=== PATIENT | male | born 1975 | race Caucasian/White ===

== ENCOUNTER 2019-01-23 07:27 | Emergency (ER) | payer SELFPAY ==
[2019-01-23 07:28] VITALS: BP 110/67; PULSE 111; RESP 22; TEMP 36.6; O2SAT 96; BMI 28.0
--- NOTE | 2019-01-23 08:03 | ED.DCSUM_ITS ---
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 For the last month he has had a cough. At times yellowish phlegm. No vomiting or diarrhea. No fever. No shortness of breath. No chest pain. Physical Examination: Well-appearing middle-aged male. No acute distress. Vital signs are stable afebrile. Pulse ox 96% on room air no signs of hypoxia. H EENT exam bilateral cerumen impactions. Posterior pharynx unremarkable. Neck nontender no lymphadenopathy. Lungs clear to auscultation bilaterally. No rales, rhonchi or wheezing. Equal symmetrical. Able to take deep inspirations. Heart regular rhythm no murmur. Abdomen is soft nontender. Normal bowel sounds no peritoneal signs. Moving all 4 extremities. Calves are nontender without edema or cords. Neurologically is awake and alert. Back nontender. Test Results: None Emergency Department Course and Treatment: History and exam are consistent with seasonal allergies. Treatment Plan: [id number] Zyrtec or Claritin. Follow-up as needed. Stop smoking. Disposition: Discharge Impression: Seasonal allergies This note was generated with [employer] dictation software. It may contain incorrect words, spelling, and punctuation that were not noted in review of the chart prior to signing ED Disposition - Plan for ED Patient: Referrals: Patel Champion DO [Primary Care Provider] -
--- NOTE | 2019-01-23 08:05 | ED.DEP ---
ED Disposition - Plan for ED Patient: Disposition: Home or Assisted Living Referrals: Patel Champion DO [Primary Care Provider] - 10-14 Days if not better Additional Instructions: This caused by seasonal allergies. Use [id number] Zyrtec or Claritin for the allergies. Stop smoking.
== END 2019-01-23 08:14 | disposition home or self-care (01) ==
LOC: ED 08:07
PROVIDERS: Emergency Provider Emergency Medicine
DX: J30.2 Other seasonal allergic rhinitis (principal); Z72.0 Tobacco use
CPT/HCPCS: 99282

== ENCOUNTER 2020-01-21 08:29 | Emergency (ER) | payer SELFPAY ==
[2020-01-21 08:30] VITALS: BP 142/91; PULSE 118; RESP 19; TEMP 37.1; O2SAT 99; BMI 32.5
--- NOTE | 2020-01-21 09:17 | RAD_ITS ---
STUDY: X-RAY - LUMBAR SPINE REASON FOR EXAM: Male, 44 years old. Fell a couple days ago off a swing, LBP started last night, legs are tingling TECHNIQUE: 3 view(s) of the lumbar spine were obtained. COMPARISON: None FINDINGS: Normal lumbar lordosis. There is no substantial scoliosis. There is a normal alignment of the vertebrae. Anterior spondylosis at the L3-L4 and L5-S1 levels. Marked degree of disc space narrowing at the L5-S1 level. The soft tissue structures are unremarkable. RAD/Lumbar Spine 2 or 3 Views IMPRESSION: Degenerative changes of the spine, as detailed above. Electronically Signed: Jerome Tomas, at 10:14 EDT , Service support ,
--- NOTE | 2020-01-21 09:17 | RAD_ITS ---
STUDY: X-RAY CHEST REASON FOR EXAM: Male, 44 years old. Cough, SOB, ARMENTA started this morning TECHNIQUE: PA and lateral views of the chest. COMPARISON: None. FINDINGS: Minimal increased linear markings at the left lung base suggestive of left basilar atelectasis. There is no demonstrated pleural abnormality. Normal size heart. Normal mediastinum and travis. Normal visualized pulmonary arteries. Normal visualized aortic arch and descending thoracic aorta. There are degenerative changes of the visualized thoracic spine. Normal visualized ribs, clavicles, and shoulders. There is no demonstrated abnormality of the visualized soft tissue structures of the upper abdomen. RAD/Chest PA and Lateral IMPRESSION: Mild increased linear markings at the left lung base suggestive of linear atelectasis. Electronically Signed: Jerome Tomas, at 10:14 EDT , Service support ,
--- NOTE | 2020-01-21 09:21 | ED.DCSUM_ITS ---
History of Present Illness Chief Complaint: Back Informant: Patient Narrative: Patient states that 2 days ago he was on a swing and the chain broke and he fell down into a sitting position. States he was sore but was not that bad. This morning he reports significant low back pain that radiates to both legs. He denies any bowel or bladder dysfunction. No muscle weakness. He also states he is developed a cough nasal congestion and sore throat. He notes chills but no fever. He is a smoker. He denies any diarrhea or rash. Patient states that several years ago he had a back injury told he had a pinched nerve and saw a chiropractor and got better. He states this feels similar. Past Medical History - Allergies and Home Meds Allergies/Adverse Reactions: Allergies Penicillins Allergy (Verified 01/21/20 08:30) Hives Primary Care Physician: Cassandra Burleson MD [STAFF PHYSICIAN] - 1 Week if not improving Prior records reviewed: Yes Past Medical History: None Surgical History: noncontributory Smoking Status: Current every day smoker Drugs: None Review of Systems General: Reports: Chills, Malaise. Denies: Fever, Sweats Eyes: Denies: Visual changes - bilaterally, Diplopia ENT: Reports: Rhinorrhea, Sore throat Cardiovascular: Denies: Chest pain, Palpitations Respiratory: Reports: Dyspnea, Cough. Denies: Dyspnea on exertion Gastrointestinal: Denies: Abdominal pain, Nausea, Vomiting, Diarrhea, Melena, Hematochezia Genitourinary: Denies: Dysuria, Hematuria, Frequency Musculoskeletal: Reports: Back pain. Denies: Extremity Pain Skin: Denies: Rash, Wounds Neurological: Reports: Headache. Denies: Weakness, Numbness Physical Exam Vital Signs/Narrative: Vital Signs Temp Pulse Resp BP Pulse Ox 01/21/20 08:30 98.7 F 118 H 19 H 142/91 H 99 Inital Vital Signs reviewed: Yes General: Well nourished, Well developed, No Acute Distress Head: Normocephalic, Atraumatic Eyes: Perrl, EOMI ENT: Moist mucous membranes, No rhinorrhea, Nasal congestion, - - Bilateral tonsillar erythema and exudates no retropharyngeal or peritonsillar abscess noted. Neck: Supple, Nontender Cardiovascular: Regular rate, Regular rhythm, No murmurs Respiratory: No distress, CTA bilaterally, Chest nontender Abdomen: Soft, Nontender, Nondistended, Normal bowel sounds Back: Spinal tenderness, - - bilateral paraspinal muscular tenderness to palpation with tissue texture changes Extremities: Nontender, No edema Skin: Normal color, No rash Neurological: Alert, Oriented x3, Cranial nerves II-XII grossly intact, Normal Strength, Normal Sensation Psychological: Normal affect, Normal Mood Diagnostic/Tx/Re-eval - Medical Decision Making X-rays of the lumbar spine show the interspace of 5 S1 to be significantly narrowed compared to the others. Patient will be given a prescription for [place] and Flexeril. He should also use anti-inflammatories. Instructions to follow- up with primary care. As far as his sore throat and cough for now place him on azithromycin. I think he most likely has a bacterial pharyngitis. COVID swab will still be sent. ED Disposition - Plan for ED Patient: Disposition: Home or Assisted Living Diagnosis: Lumbar radiculopathy, acute, DDD (degenerative disc disease), lumbar, Tonsillitis with exudate Instructions: ED LUMBAR RADICULOPATHY, ED Tonsillitis Prescriptions: Azithromycin 500 mg PO DAILY #5 tab Prescription Printed cycloBENZAPRine HCl [Flexeril] 10 mg PO TID PRN #15 tab PRN Reason: Muscle Spasm Prescription Printed Ibuprofen [Motrin] 800 mg PO TID PRN PRN #20 tab PRN Reason: pain Prescription Printed Hydrocodone Bitart/Apap 5-325 [[place] 5MG-325MG] 1 tab PO Q6H PRN PRN 3 Days #12 tab PRN Reason: Pain Prescription Printed Referrals: Cassandra Burleson MD [STAFF PHYSICIAN] - 1 Week if not improving
[2020-01-21 10:19] VITALS: BP 131/74; PULSE 109; RESP 22; O2SAT 98
--- NOTE | 2020-01-21 10:20 | ED.RN ---
THIS NURSE REVIEWED D/C INSTRUCTIONS WITH PT. PT VERBALIZED UNDERSTANDING OF D/C INSTRUCTIONS. PT DENIES FURTHER NEEDS OR QUESTIONS AT THIS TIME. PT AMBULATES FROM ROOM ON OWN WITHOUT ASSISTANCE FROM STAFF
== END 2020-01-21 10:22 | disposition home or self-care (01) ==
PROVIDERS: Emergency Provider Emergency Medicine
DX: M51.16 Intervertebral disc disorders with radiculopathy, lumbar region (principal); J03.90 Acute tonsillitis, unspecified; F17.200 Nicotine dependence, unspecified, uncomplicated; Z88.0 Allergy status to penicillin
CPT/HCPCS: 71046; 72100; 87635; 99282; C9803; U0003

== ENCOUNTER 2021-04-21 05:36 | Emergency (ER) | payer SELFPAY ==
[2021-04-21 05:36] VITALS: BP 131/102; PULSE 111; RESP 18; TEMP 36.1; O2SAT 95; BMI 31.5
--- NOTE | 2021-04-21 05:52 | EKG12_ITS ---
Test Reason : CP Blood Pressure : / mmHG Vent. Rate : 114 BPM Atrial Rate : 114 BPM P-R Int : 148 ms QRS Dur : 076 ms QT Int : 334 ms P-R-T Axes : 036 -10 030 degrees QTc Int : 460 ms Sinus tachycardia Otherwise normal ECG No previous ECGs available Confirmed by ELOISE STRONG, RUBI ([id number]), sound editor PHYLLIS CORRAL ([id number]) on 04/27/2021 1:37:42 PM Referred By: CASE Confirmed By:RUBI NAVAS MD
--- NOTE | 2021-04-21 06:00 | RAD_ITS ---
STUDY: X-RAY CHEST REASON FOR EXAM: Male, 45 years old. chest pain TECHNIQUE: AP portable COMPARISON: 01/21/2020 FINDINGS: The lungs are clear and expanded. There is no demonstrated pleural abnormality. Normal size heart. Normal mediastinum and travis. Normal visualized pulmonary arteries. Normal visualized aortic arch and descending thoracic aorta. Normal visualized thoracic spine. Normal visualized ribs, clavicles, and shoulders. There is no demonstrated abnormality of the visualized soft tissue structures of the upper abdomen. RAD/Chest 1 View (Portable) IMPRESSION: Negative x-ray examination of the chest. Electronically Signed: Bao Merino MD at 6:24 EST Tel , Service support ,
[2021-04-21 06:10] LABS: Absolute Lymphocyte Count 5.07 X10^3/uL (0.83-4.51); Absolute Neutrophil Count 12.2 X10^3/uL (2.0-7.7); Basophil% 0.5 % (0-1); Eosinophil# 0.45 X10^3/uL; Eosinophils% 2.3 % (0-5); Hematocrit 48.1 % (40-54); Hemoglobin 15.7 g/dL (13.0-16.5); Lymphocyte # 5.07 X10^3/ul (0.83-4.51); Lymphocyte % 26.3 % (19-41); Mean Corp Hgb Conc 32.6 g/dL (32-36); Mean Corpuscular Hgb 30.3 pg (27.0-32.0); Mean Corpuscular Volume 92.7 fL (80-94); Mean Platelet Vol. 9.1 fl (6.2-12.0); Monocyte# 1.35 X10^3/uL; NRBC Flagged by Analyzer 0 % (0-5); Neutrophil # 12.22 X10^3/uL (2.7-7.7); Neutrophil % 63.3 % (47-70); POSITIVE DIFFERENTIAL YES; Platelet Count 361 K/mm3 (150-450); RBC Distribution Width CV 12.9 % (11.6-14.6); RBC Distribution Width SD 43.9 fl (35.1-43.9); Red Blood Count 5.19 M/mm3 (4.6-6.2); White Blood Count 19.3 K/mm3 (4.4-11.0)
[2021-04-21 06:11] LABS: Differential Indicated SCAN CRITERIA MET
[2021-04-21 06:20] LABS: D-Dimer Quantitative (DVT/PE) 0.27 FEU/ug/m (0.27-0.49)
[2021-04-21] MEDS: 0.9% Normal Saline 1,000 ML 999 ML IV (06:23)
[2021-04-21] MEDS: Aspirin 325 MG Tablet PO (06:24)
[2021-04-21 06:26] VITALS: BP 138/98; PULSE 105; RESP 17; O2SAT 95
[2021-04-21 06:29] LABS: Differential Comment SCANNED; Reactive Lymphocyte RARE
[2021-04-21 06:45] LABS: AST(SGOT) 17 U/L (15-37); Alanine Aminotransfer ALT/SGPT 34 U/L (16-61); Albumin, Serum 3.4 g/dL (3.2-5.0); Alkaline Phosphatase 119 U/L (45-117); Anion Gap 5 (5-15); BUN 16 mg/dL (7-18); BUN/Creat Ratio 13.7 RATIO (10-20); Bilirubin, Direct 0.09 mg/dL (0.00-0.30); Calcium,Total 9.3 mg/dL (8.5-10.1); Chloride 106 mmol/L (98-107); Creatinine, Serum 1.17 mg/dL (0.70-1.30); EST Glomerular Filtration Rate 72 mL/min (>60); Est Glom Filt Rate - Afr Amer 87 mL/min (>60); Estimated Creatinine Clearance 81.41 ml/min; Globulin 4.6 g/dL (2.2-4.2); Glucose 117 mg/dL (74-106); Lipase 147 U/L (73-393); Potassium 4.1 mmol/L (3.5-5.1); Sodium Level 137 mmol/L (136-145); Troponin-I HS 10 pg/mL (3.0-78.0)
--- NOTE | 2021-04-21 07:08 | EX.ED.DYSGE1 ---
HPI <Dr. Luis Casper, DO - Last Filed: 04/21/21 07:43> History of Present Illness Chief Complaint: Chest Pain Narrative Narrative: Patient is a 45-year-old male with past medical history of smoking. He states that he has had some congestion and cough and awoke this morning with midsternal chest pain. He denies any nausea vomiting or diaphoresis associated with this. He states that with his symptoms he was concerned this could be cardiac or even a possible Covid infection because of his symptoms and therefore presents for evaluation. PFS <Dr. Luis Casper, DO - Last Filed: 04/21/21 07:43> [facility] Medical History no medical history Home Medications NK 04/21/21 [History Last Taken Unknown] Allergy/AdvReac Type Severity Reaction Status Date / Time Penicillins Allergy Hives Verified 04/21/21 05:39 Social History Smoking Status: Current every day smoker tobacco type: cigarettes ROS <Dr. Luis Casper, DO - Last Filed: 04/21/21 07:43> ROS ED Constitutional Constitutional ED: Denies chills or fever(s) ENT ENT ED: Denies sore throat Cardiovascular Cardiovascular: Reports chest pain Respiratory/Chest Respiratory/Chest: Reports cough and dyspnea Gastrointestinal Gastrointestinal: Reports abdominal pain and nausea; Denies diarrhea or vomiting Genitourinary Genitourinary ED: Denies dysuria Musculoskeletal Musculoskeletal: Denies myalgias Integumentary Denies rash Neurologic Neurologic: Denies headache(s) Hematologic/Lymphatic Hematologic/Lymphatic: Denies easy bleeding or easy bruising EXAM <Dr. Luis Casper, DO - Last Filed: 04/21/21 07:43> Physical Exam Const Vital Signs: 04/21/21 05:36 04/21/21 05:42 04/21/21 06:26 Temperature 97 F L Temperature Source Temporal Pulse Rate 111 H 105 H Respiratory Rate 18 17 Respiratory Effort Normal Non-Labored Blood Pressure 131/102 H 138/98 H Blood Pressure Mean 111 111 Pulse Ox 95 95 Oxygen Delivery Method Room Air Room Air Positive well nourished, well developed and obese General Appearance ED: well developed Nutritional Appearance: obese HEENT Reports moist mucous membranes HEENT Narrative: Cobblestoning the posterior pharynx consistent with sinus drainage but no airway edema or compromise Eyes PERRL and EOMs intact bilaterally General Eye ED: Negative for scleral icterus Neck supple and no JVD Neck Narrative: Positive anterior cervical lymphadenopathy noted Chest Wall Chest Narrative: Palpation of the anterior chest reproduces pain that is sharp in nature and similar to the pain patient was experiencing. No bony deformity or crepitance noted Resp Resp Narrative: Breath sounds are diminished throughout with diffuse expiratory wheeze and rhonchi in the bilateral bases Cardio regular rhythm Rate: tachycardic and other Other Details: Tachycardic rate with regular rhythm radial pulses are +2-4 bilaterally are equal and symmetric GI non-distended and no masses GI Narrative: Abdomen is obese soft and nondistended with normal active bowel sounds. There is pain with palpation in the midepigastric region without voluntary guarding or rigidity no pulsatile mass Auscultation: normoactive bowel sounds Palpation: soft Extremity normal to inspection Extremity Narrative: No asymmetric edema no pitting edema negative Homans' sign bilaterally Neuro oriented x3 and CN's II-XII intact bilaterally Sensorium / Orientation: alert Motor Exam: strength 5/5 throughout Psych mental status grossly normal Skin no rashes or lesions noted General Skin Exam: Negative for jaundice <Dr. Frederick Rodriguez MD - Last Filed: 04/21/21 08:25> Physical Exam Const Vital Signs: 04/21/21 05:36 04/21/21 05:42 04/21/21 06:26 Temperature 97 F L Temperature Source Temporal Pulse Rate 111 H 105 H Respiratory Rate 18 17 Respiratory Effort Normal Non-Labored Blood Pressure 131/102 H 138/98 H Blood Pressure Mean 111 111 Pulse Ox 95 95 Oxygen Delivery Method Room Air Room Air [facility] <Dr. Luis Casper DO - Last Filed: 04/21/21 07:43> [facility] Narrative Medical decision making narrative: Patient presented to the ER afebrile but mildly tachycardic. His constellation of symptoms is not classic cardiac as he also reports he has had congestion and cough. As well on exam he does have upper abdominal pain therefore there is concern this could be a pneumonia pulmonary embolus cardiac event or even abdominal pathology such as pancreatitis. Secondary to this a basic cardiac work-up was ordered with D-dimer. D-dimer is negative and his troponin is normal at 10 but his white count is elevated at 19 secondary to this high value with a negative Covid test as well as normal chest x-ray there is concern that pneumonia is being missed on x-ray and therefore I will add a CT scan at this time. I feel that if CT scan reveals no acute findings and repeat troponin is normal the patient should be safe for discharge. Lab Data Attestation: I reviewed the patient's lab results. Labs: Laboratory Results - last 24 hr 04/21/21 04/21/21 04/21/21 05:38 05:38 05:38 WBC 19.3 H RBC 5.19 Hgb 15.7 Hct 48.1 MCV 92.7 MCH 30.3 MCHC 32.6 RDW Std Deviation 43.9 RDW Coeff of Alicia 12.9 Plt Count 361 MPV 9.1 Immature Gran % (Auto) 0.600 Neut % (Auto) 63.3 Lymph % (Auto) 26.3 [place] % (Auto) 7.0 Eos % (Auto) 2.3 Baso % (Auto) 0.5 Absolute Neuts (auto) 12.2 H Absolute Lymphs (auto) 5.07 H Nucleated RBC % 0 Differential Comment SCANNED Reactive Lymphocytes RARE D-Dimer Quant (PE/DVT) 0.27 Sodium 137 Potassium 4.1 Chloride 106 Carbon Dioxide 26.0 Anion Gap 5 BUN 16 Creatinine 1.17 Estim Creat Clear Calc 81.41 Est GFR (MDRD) Af Amer 87 Est GFR (MDRD) Non-Af 72 BUN/Creatinine Ratio 13.7 Glucose 117 H Calcium 9.3 Total Bilirubin 0.50 Direct Bilirubin 0.09 AST 17 ALT 34 Alkaline Phosphatase 119 H Troponin I High Sens 10 Total Protein 8.0 Albumin 3.4 Globulin 4.6 H Lipase 147 04/21/21 07:32 WBC RBC Hgb Hct MCV MCH MCHC RDW Std Deviation RDW Coeff of Alicia Plt Count MPV Immature Gran % (Auto) Neut % (Auto) Lymph % (Auto) [place] % (Auto) Eos % (Auto) Baso % (Auto) Absolute Neuts (auto) Absolute Lymphs (auto) Nucleated RBC % Differential Comment Reactive Lymphocytes D-Dimer Quant (PE/DVT) Sodium Potassium Chloride Carbon Dioxide Anion Gap BUN Creatinine Estim Creat Clear Calc Est GFR (MDRD) Af Amer Est GFR (MDRD) Non-Af BUN/Creatinine Ratio Glucose Calcium Total Bilirubin Direct Bilirubin AST ALT Alkaline Phosphatase Troponin I High Sens 13 Total Protein Albumin Globulin Lipase Radiography Diagnostic Testing: Clinical Impression(s) from Imaging Studies Chest X-Ray 04/21/21 06:00 IMPRESSION: Negative x-ray examination of the chest. Electronically Signed: Bao Merino MD at 6:24 EST Tel , Service support , Chest CTA 04/21/21 07:16 IMPRESSION: Normal CTA chest examination, without a demonstrated pulmonary embolism or arterial dissection. Mild increased markings at the right lung base suggestive of atelectasis. 6.7 cm x 6 cm cyst in the upper abdomen on the right side most likely representing either a right adrenal cyst versus a cyst in the upper pole of the right kidney. Electronically Signed: Jerome Tomas MD at 8:13 EST , Service support , <Dr. Frederick Rodriguez MD - Last Filed: 04/21/21 08:25> [facility] Lab Data Attestation: I reviewed the patient's lab results. Lab results narrative: Patient does have an elevated white count. Second troponin is within normal range and delta is negative. CT of the chest reveals no pulmonary abnormality. There is evidence of a renal cyst versus adrenal cyst. The etiology of the leukocytosis is unknown. Since patient is afebrile and is not tachypneic or hypoxic will discharge to home. Patient states the reason he presented was chest pain. Since there is no abnormality noted in the chest or upper abdomen on the CTA will discharge to home Labs: Laboratory Results - last 24 hr 04/21/21 04/21/21 04/21/21 05:38 05:38 05:38 WBC 19.3 H RBC 5.19 Hgb 15.7 Hct 48.1 MCV 92.7 MCH 30.3 MCHC 32.6 RDW Std Deviation 43.9 RDW Coeff of Alicia 12.9 Plt Count 361 MPV 9.1 Immature Gran % (Auto) 0.600 Neut % (Auto) 63.3 Lymph % (Auto) 26.3 [place] % (Auto) 7.0 Eos % (Auto) 2.3 Baso % (Auto) 0.5 Absolute Neuts (auto) 12.2 H Absolute Lymphs (auto) 5.07 H Nucleated RBC % 0 Differential Comment SCANNED Reactive Lymphocytes RARE D-Dimer Quant (PE/DVT) 0.27 Sodium 137 Potassium 4.1 Chloride 106 Carbon Dioxide 26.0 Anion Gap 5 BUN 16 Creatinine 1.17 Estim Creat Clear Calc 81.41 Est GFR (MDRD) Af Amer 87 Est GFR (MDRD) Non-Af 72 BUN/Creatinine Ratio 13.7 Glucose 117 H Calcium 9.3 Total Bilirubin 0.50 Direct Bilirubin 0.09 AST 17 ALT 34 Alkaline Phosphatase 119 H Troponin I High Sens 10 Total Protein 8.0 Albumin 3.4 Globulin 4.6 H Lipase 147 04/21/21 07:32 WBC RBC Hgb Hct MCV MCH MCHC RDW Std Deviation RDW Coeff of Alicia Plt Count MPV Immature Gran % (Auto) Neut % (Auto) Lymph % (Auto) [place] % (Auto) Eos % (Auto) Baso % (Auto) Absolute Neuts (auto) Absolute Lymphs (auto) Nucleated RBC % Differential Comment Reactive Lymphocytes D-Dimer Quant (PE/DVT) Sodium Potassium Chloride Carbon Dioxide Anion Gap BUN Creatinine Estim Creat Clear Calc Est GFR (MDRD) Af Amer Est GFR (MDRD) Non-Af BUN/Creatinine Ratio Glucose Calcium Total Bilirubin Direct Bilirubin AST ALT Alkaline Phosphatase Troponin I High Sens 13 Total Protein Albumin Globulin Lipase Radiography Diagnostic Testing: Clinical Impression(s) from Imaging Studies Chest X-Ray 04/21/21 06:00 IMPRESSION: Negative x-ray examination of the chest. Electronically Signed: Bao Merino MD at 6:24 EST Tel , Service support , Chest CTA 04/21/21 07:16 IMPRESSION: Normal CTA chest examination, without a demonstrated pulmonary embolism or arterial dissection. Mild increased markings at the right lung base suggestive of atelectasis. 6.7 cm x 6 cm cyst in the upper abdomen on the right side most likely representing either a right adrenal cyst versus a cyst in the upper pole of the right kidney. Electronically Signed: Jerome Tomas MD at 8:13 EST , Service support , Discharge Plan Triage Chief Complaint: Chest Pain Other Complaint: Confusion ED Provider: Luis Casper Dx/Rx/DC Orders Clinical Impression: Chest pain in adult, Leukocytosis, Sinus tachycardia Instructions: ED Chest Pain, Uncertain Cause Prescriptions: No Action NK RF: 0 Primary Care Provider: Care Physician,No Primary Referrals: Care Physician,No Primary [Primary Care Provider] - Patty Montero [NON-STAFF] - 3-5 Days if not improving Disposition Disposition: Home, Self Care
--- NOTE | 2021-04-21 07:16 | CT_ITS ---
STUDY: CTA CHEST REASON FOR EXAM: Male, 45 years old. Chest pain RADIATION DOSAGE (If Supplied By Facility): CTDIvol = ( 11.22 ) mGy, DLP = ( 455.64 ) mGycm TECHNIQUE: The examination was performed with the intravenous administration of IV 100mL Isovue-300. Post-processing of the angiographic images was performed, with multiplanar reformation and 3D reconstruction. Individualized dose optimization techniques were used for this CT. COMPARISON: None. FINDINGS: Normal enhancement of the main pulmonary artery and right and left pulmonary arteries. Normal enhancement of the bilateral peripheral pulmonary arteries. There is no demonstrated pulmonary embolism. Normal thoracic aorta and visualized great vessels. There is no demonstrated aortic dissection. Normal heart and pericardium. Normal mediastinum. Normal hilar regions. Normal visualized trachea and bronchi. The lungs are well expanded. Mild increased markings at the right lung base suggestive of a right basilar atelectasis. Normal pleura. Normal chest wall structures. There are degenerative changes of thoracic spine. There is a 6.7 cm x 6 cm cyst seen in the limited visualization of the upper abdomen. This may represent either a cyst arising from the right adrenal gland or upper pole of the right kidney. Small hiatal hernia. CT/CTA Chest W/WO Contrast IMPRESSION: Normal CTA chest examination, without a demonstrated pulmonary embolism or arterial dissection. Mild increased markings at the right lung base suggestive of atelectasis. 6.7 cm x 6 cm cyst in the upper abdomen on the right side most likely representing either a right adrenal cyst versus a cyst in the upper pole of the right kidney. Electronically Signed: Jerome Tomas MD at 8:13 EST , Service support ,
[2021-04-21 07:57] LABS: Troponin-I HS 13 pg/mL (3.0-78.0)
[2021-04-21 08:28] VITALS: BP 134/69; PULSE 89; RESP 16; O2SAT 97
[2021-04-21 08:46] LABS: Prothrombin Time (Protime)PT. 12.8 SECONDS (11.7-14.9)
[2021-04-21 08:47] LABS: Partial Thromboplast Time 33.5 Seconds (24.1-36.2)
== END 2021-04-21 08:32 | disposition home or self-care (01) ==
PROVIDERS: Emergency Provider Emergency Medicine
DX: R07.9 Chest pain, unspecified (principal); D72.829 Elevated white blood cell count, unspecified; R00.0 Tachycardia, unspecified; R10.10 Upper abdominal pain, unspecified; E66.9 Obesity, unspecified; F17.210 Nicotine dependence, cigarettes, uncomplicated
CPT/HCPCS: 71045; 71275; 80048; 80076; 83690; 84484; 85025; 85379; 85610; 85730; 87426; 93005; 99285; J7030; Q9967; A4216

== ENCOUNTER 2022-09-26 02:15 | Emergency (ER) | payer MEDICAID, SELFPAY ==
[2022-09-26 02:15] VITALS: BP 144/101; PULSE 104; RESP 18; TEMP 36.1; O2SAT 96; BMI 30.8
--- NOTE | 2022-09-26 02:35 | RAD_ITS ---
EXAM: XR CHEST, 2 VIEWS CLINICAL INDICATION: chest pain TECHNIQUE: Frontal and lateral views of the chest. COMPARISON: Previous chest radiographs of 04/21/2021 and 01/21/2020 FINDINGS: LUNGS AND PLEURAL SPACES: Unremarkable. No consolidation or edema. No pneumothorax. No effusion. HEART: Unremarkable. Cardiac silhouette not enlarged. Normal pulmonary vasculature. MEDIASTINUM: Thoracic aorta remains mildly elongated. BONES/JOINTS: Chronic thoracic degenerative spurring. No acute osseous abnormality. SOFT TISSUES: Unremarkable. RAD/Chest PA and Lateral IMPRESSION: No significant interval change. No radiographic evidence of acute cardiopulmonary disease. Electronically Signed: Darinel Escobedo MD at 3:12 EDT ,
[2022-09-26 02:42] LABS: Absolute Lymphocyte Count 3.87 X10^3/uL (0.83-4.51); Basophil# 0.09 X10^3/uL; Basophil% 0.7 % (0-1); Eosinophil# 0.47 X10^3/uL; Eosinophils% 3.8 % (0-5); Hemoglobin 15.6 g/dL (13.0-16.5); Lymphocyte # 3.87 X10^3/ul (0.83-4.51); Lymphocyte % 31.5 % (19-41); Mean Corp Hgb Conc 33.9 g/dL (32-36); Mean Corpuscular Hgb 31.3 pg (27.0-32.0); Mean Corpuscular Volume 92.4 fL (80-94); Mean Platelet Vol. 9.3 fl (6.2-12.0); Monocyte# 0.81 X10^3/uL; Monocyte% 6.6 % (0-10); NRBC Flagged by Analyzer 0 % (0-5); Neutrophil # 7.01 X10^3/uL (2.7-7.7); Neutrophil % 57.1 % (47-70); Platelet Count 396 K/mm3 (150-450); Red Blood Count 4.98 M/mm3 (4.6-6.2); White Blood Count 12.3 K/mm3 (4.4-11.0)
[2022-09-26] MEDS: 0.9% Normal Saline 1,000 ML 999 ML IV (02:46)
[2022-09-26] MEDS: Aspirin 325 MG Tablet PO (02:46)
[2022-09-26 02:54] LABS: D-Dimer Quantitative (DVT/PE) 0.48 FEU/ug/m (0.27-0.49)
[2022-09-26 03:01] LABS: Anion Gap 7 (5-15); BUN 18 mg/dL (7-18); BUN/Creat Ratio 16.5 RATIO (10-20); Calcium,Total 9.3 mg/dL (8.5-10.1); Chloride 109 mmol/L (98-107); Creatinine, Serum 1.09 mg/dL (0.70-1.30); EST Glomerular Filtration Rate 78 mL/min (>60); Est Glom Filt Rate - Afr Amer 94 mL/min (>60); Estimated Creatinine Clearance 86.48 ml/min; Glucose 145 mg/dL (74-106); Magnesium 2.3 mg/dL (1.6-2.6); Potassium 3.7 mmol/L (3.5-5.1); Sodium Level 140 mmol/L (136-145); Troponin-I HS 10 pg/mL (3.0-78.0)
[2022-09-26 03:15] VITALS: BP 138/94; PULSE 92; RESP 20; O2SAT 100
--- NOTE | 2022-09-26 04:29 | EDS_ITS ---
HPI History of Present Illness Chief Complaint: Chest Pain Informant: patient Narrative Narrative: Patient is a 46-year-old male with past medical history of smoking as well as diabetes not on insulin. He states he went to bed feeling normally and then awoke with some right-sided chest pain. He states it was sharp and stabbing in nature and that there was no radiation of the pain and he denies any nausea vomiting or diaphoresis or shortness of breath associated with this. He states his father had a heart attack around age 50 and as he is close that age had concerned this could be cardiac in nature and therefore comes in for evaluation. Patient denies any recent trauma or excessive activity and he denies any recent travel surgery or history of DVT/PE PFSH PFS Home Medications NK 04/21/21 [History Last Taken Unknown] Allergy/AdvReac Type Severity Reaction Status Date / Time Penicillins Allergy Hives Verified 09/26/22 02:17 Social History Smoking Status: Current every day smoker tobacco type: cigarettes ROS ROS ED Constitutional Constitutional ED: Denies chills or fever(s) ENT ENT ED: Denies sore throat Cardiovascular Cardiovascular: Reports chest pain; Denies palpitations or racing heartbeat Respiratory/Chest Respiratory/Chest: Denies cough or dyspnea Gastrointestinal Gastrointestinal: Denies abdominal pain, diarrhea, nausea or vomiting Genitourinary Genitourinary ED: Denies dysuria Musculoskeletal Musculoskeletal: Denies back pain or myalgias Integumentary Denies rash Neurologic Neurologic: Denies headache(s) Hematologic/Lymphatic Hematologic/Lymphatic: Denies easy bleeding or easy bruising EXAM Physical Exam Const Vital Signs: 09/26/22 02:15 09/26/22 03:15 Temperature 96.9 F L Temperature Source Temporal Pulse Rate 104 H 92 Respiratory Rate 18 20 H Blood Pressure 144/101 H 138/94 H Blood Pressure Mean 115 108 Pulse Ox 96 100 Oxygen Delivery Method Room Air Room Air Positive well nourished and well developed General Appearance ED: well developed HEENT Reports moist mucous membranes HEENT Narrative: No tongue or lip swelling no oral lesions no airway edema or compromise Eyes PERRL and EOMs intact bilaterally Neck supple and no JVD Chest Wall Chest Narrative: There is pain on palpation along the right anterior chest wall that patient states is similar to the pain he has been experiencing. No bony deformity or crepitance or overlying soft tissue changes to suggest trauma or infection Resp normal respiratory effort Resp Narrative: Breath sounds are diminished throughout with faint rhonchi and expiratory wheeze in the lower lobes but no nasal flaring retractions or accessory muscle use Cardio regular rhythm Rate: tachycardic and other Other Details: Tachycardic rate with regular rhythm GI normal to inspection, nondistended, normoactive bowel sounds, non-tender, non-distended and no masses GI Narrative: No voluntary guarding or rigidity no pulsatile mass or fluid wave Auscultation: normoactive bowel sounds Palpation: soft Extremity normal to inspection Extremity Narrative: No asymmetric edema no pitting edema negative Homans' sign bilaterally Neuro oriented x3 and CN's II-XII intact bilaterally Sensorium / Orientation: alert Psych Psych Narrative: Patient has a flat affect Skin no rashes or lesions noted MDM MDM MDM Narrative Medical decision making narrative: Patient presented to the ER hypertensive. He is also mildly tachycardic. However he denies any pain with inspiration and he denies any recent travel surgery or history of DVT/PE. However as differential diagnosis for his chest pain is acute coronary syndrome versus pericarditis versus pneumonia versus pneumothorax versus DVT/PE I did elect to perform basic laboratory studies with D-dimer. Initial troponin was 10 and the delta only increased by a value of 2 which is not clinically significant and goes against cardiac disease. His D- dimer was less than 0.5 going against PE as a cause of his chest discomfort. Chest x-ray revealed no acute lung pathology either. On reevaluation he is resting comfortably and he has reported improvement of his chest. He is low risk for cardiovascular disease and with negative work-up I feel safe for discharge as history and physical exam indicates this is most likely chest wall and not cardiac in nature History & Record Review Discussion w/independent historian: Patient Lab Data Attestation: I reviewed the patient's lab results. Labs: Laboratory Results - last 24 hr 09/26/22 09/26/22 09/26/22 02:20 02:20 02:20 WBC 12.3 H RBC 4.98 Hgb 15.6 Hct 46.0 MCV 92.4 MCH 31.3 MCHC 33.9 RDW Std Deviation 44.0 H RDW Coeff of Alicia 13.0 Plt Count 396 MPV 9.3 Immature Gran % (Auto) 0.300 Neut % (Auto) 57.1 Lymph % (Auto) 31.5 [place] % (Auto) 6.6 Eos % (Auto) 3.8 Baso % (Auto) 0.7 Absolute Neuts (auto) 7.0 Absolute Lymphs (auto) 3.87 Nucleated RBC % 0 D-Dimer Quant (PE/DVT) 0.48 Sodium 140 Potassium 3.7 Chloride 109 H Carbon Dioxide 24.0 Anion Gap 7 BUN 18 Creatinine 1.09 Estim Creat Clear Calc 86.48 Est GFR (MDRD) Af Amer 94 Est GFR (MDRD) Non-Af 78 BUN/Creatinine Ratio 16.5 Glucose 145 H Calcium 9.3 Magnesium 2.3 Troponin I High Sens 10 09/26/22 04:15 WBC RBC Hgb Hct MCV MCH MCHC RDW Std Deviation RDW Coeff of Alicia Plt Count MPV Immature Gran % (Auto) Neut % (Auto) Lymph % (Auto) [place] % (Auto) Eos % (Auto) Baso % (Auto) Absolute Neuts (auto) Absolute Lymphs (auto) Nucleated RBC % D-Dimer Quant (PE/DVT) Sodium Potassium Chloride Carbon Dioxide Anion Gap BUN Creatinine Estim Creat Clear Calc Est GFR (MDRD) Af Amer Est GFR (MDRD) Non-Af BUN/Creatinine Ratio Glucose Calcium Magnesium Troponin I High Sens 12 Radiography Diagnostic Testing: Clinical Impression(s) from Imaging Studies Chest X-Ray 09/26/22 02:35 IMPRESSION: No significant interval change. No radiographic evidence of acute cardiopulmonary disease. Electronically Signed: Darinel Escobedo MD at 3:12 EDT , Chest x-ray as interpreted by the emergency medicine physician reveals no acute infiltrate pneumothorax or pleural effusion Discharge Plan Triage Chief Complaint: Chest Pain ED Provider: Luis Casper Dx/Rx/DC Orders Clinical Impression: Nonspecific chest pain, Tobacco abuse Instructions: ED Chest Pain, Uncertain Cause Prescriptions: No Action NK Primary Care Provider: Care Physician,No Primary Referrals: Surenrda Vital MD [Med Staff - Active Staff] - Care Physician,No Primary [Primary Care Provider] - Activity Restrictions/Additional Instructions: Your work-up today did not show any signs of cardiac damage or lung pathology such as pneumonia. Please follow with your family doctor to discuss further testing and return to the ER should you have any further concerns Disposition Disposition: Home, Self Care
[2022-09-26 04:38] LABS: Troponin-I HS 12 pg/mL (3.0-78.0)
[2022-09-26 04:47] VITALS: BP 140/87; PULSE 69; RESP 18; O2SAT 100
== END 2022-09-26 04:49 | disposition home or self-care (01) ==
PROVIDERS: Emergency Provider Emergency Medicine; Visit Provider Emergency Medicine
DX: R07.9 Chest pain, unspecified (principal); E11.9 Type 2 diabetes mellitus without complications; F17.210 Nicotine dependence, cigarettes, uncomplicated
CPT/HCPCS: 71046; 80048; 83735; 84484; 85025; 85379; 93005; 99283; J7030; A4216